=== PATIENT | female | born 2000 ===

== ENCOUNTER 2018-05-26 11:29 | Emergency (ER) | payer OTHER ==
[2018-05-26 11:32] VITALS: BMI 27.3
[2018-05-26 11:33] VITALS: BP 112/79; PULSE 112; RESP 18; TEMP 98.7; O2SAT 99
--- NOTE | 2018-05-26 12:41 | ED PDOC ---
HPI: Skin/Bite Injury Time Seen by Provider: 05/26/18 12:20 Chief Complaint (Nursing): Abnormal Skin Integrity Chief Complaint (Provider): Rash/bug bites History Per: Patient History/Exam Limitations: no limitations Onset/Duration Of Symptoms: Days (one ) Current Symptoms Are (Timing): Still Present (Pt presents with a body wide pruritic "rash" that is comprised of discrete red raised lesions that cover her torso, back, neck, and extremites. The patient has had these lesions for approximately 24 hours adn they followed her sleeping in her sister's bed and her sister's boyfriend has the same lesions on his body that are untreated.) Quality Of Symptoms: Itching Severity: Mild Past Medical History Reviewed: Historical Data, Nursing Documentation, Vital Signs Vital Signs: Last Vital Signs Temp 98.7 F 05/26/18 11:32 Pulse 112 H 05/26/18 11:32 Resp 18 05/26/18 11:32 BP 112/79 05/26/18 11:32 Pulse Ox 99 05/26/18 11:32 - Family History Family History: States: Unknown Family Hx - Home Medications Home Medications: Ambulatory Orders Medication Instructions Recorded Permethrin 5% [Permethrin 5% Cream] 6 applic TOP ONCE #1 tube 05/26/18 - Allergies Allergies/Adverse Reactions: Allergies Allergy/AdvReac Type Severity Reaction Status Date / Time No Known Allergies Allergy Verified 05/26/18 12:34 Review of Systems ROS Statement: Except As Marked, All Systems Reviewed And Found Negative Skin: Positive for: Lesions (see HPI) Physical Exam - Reviewed Nursing Documentation Reviewed: Yes Vital Signs Reviewed: Yes - Physical Exam Skin: Positive for: Normal Color (with exception of lesions on neck, torso, back and all extremities. The lesions are small, discrete, pruritic, raised and non- pustular ), Warm, Dry, Rash Neck: Positive for: Supple Cardiovascular/Chest: Positive for: Regular Rate, Rhythm Respiratory: Positive for: Normal Breath Sounds Pulses-Carotid (L): 2+ Pulses-Carotid (R): 2+ Pulses-Radial (L): 2+ Pulses-Radial (R): 2+ Back: Negative for: Normal Inspection (lesions are indicated above) Neurological/Psych: Positive for: Awake, Alert, Oriented - ECG O2 Sat by Pulse Oximetry: 99 Medical Decision Making Medical Decision Making: I: environmental lesions (bed bugs v dermatitis) P: IM decadron rx permethrin f/u pmd Disposition - Clinical Impression Clinical Impression: Bed bug bite - Patient ED Disposition Is Patient to be Admitted: No Counseled Patient/Family Regarding: Studies Performed, Diagnosis, Rx Given - Disposition Disposition: Routine/Home Disposition Time: 12:51 Condition: STABLE Prescriptions: Permethrin 5% [Permethrin 5% Cream] 6 applic TOP ONCE #1 tube Instructions: Bedbugs
== END 2018-05-26 13:11 | disposition home or self-care (01) ==
LOC: H.ER 11:29
DX: L30.9 Dermatitis, unspecified (principal); W57.XXXA Bitten or stung by nonvenomous insect and other nonvenomous arthropods, initial encounter; S30.860A Insect bite (nonvenomous) of lower back and pelvis, initial encounter
CPT/HCPCS: 96372; 99282; J1100